=== PATIENT | female | born 1975 | race African-American/Black ===

== ENCOUNTER 2021-05-04 13:07 | Inpatient (IN) | payer OTHER ==
[2021-05-04] MEDS ORDERED: NICOTINE POLACRILEX 2 MG GUM BUC PRN (18:40)
[2021-05-04] MEDS ORDERED: MAGNESIUM HYDROX 2400MG/30ML ORAL SUSPENSION 30 ML CUP PO PRN (18:40)
[2021-05-04] MEDS ORDERED: MAG HYDROX/AL HYDROX/SIMETH 30 ML UNIT-DOSE CUP PO PRN (18:40)
[2021-05-04] MEDS ORDERED: ACETAMINOPHEN 325 MG TABLET (FP) PO PRN ×2 (18:40)
[2021-05-04] MEDS ORDERED: MENTHOL/PHENOL 1 EACH UD MM PRN (18:40)
[2021-05-04] MEDS ORDERED: ONDANSETRON *ODT* 4 MG TABLET SL PRN (18:40)
[2021-05-04] MEDS ORDERED: MAGNESIUM CITRATE 300 ML BOTTLE PO PRN (18:40)
[2021-05-04] MEDS ORDERED: METHOCARBAMOL 500 MG TABLET PO PRN (18:40)
[2021-05-04] MEDS ORDERED: IBUPROFEN 400 MG TABLET (FP) PO PRN (18:40)
[2021-05-04] MEDS ORDERED: BISMUTH SUBSALICYLATE 524 MG/30 ML PO PRN (18:40)
[2021-05-04 19:48] VITALS: BMI 21.2
[2021-05-04] MEDS ORDERED: hydrOXYzine PAMOATE 25 MG CAPSULE (FP) PO ONE (21:22)
[2021-05-04] MEDS: hydrOXYzine PAMOATE 25 MG CAPSULE (FP) PO SCH (21:24)
[2021-05-04] MEDS: MELATONIN 5 MG TABLETS PO SCH (21:24)
[2021-05-04] MEDS: THIAMINE HCL 100 MG TABLET (FP) PO SCH (21:24)
[2021-05-05] MEDS ORDERED: hydrOXYzine PAMOATE 25 MG CAPSULE (FP) PO ONE (05:34)
[2021-05-05] MEDS: hydrOXYzine PAMOATE 25 MG CAPSULE (FP) PO SCH ×5 (06:32→21:21)
[2021-05-05] MEDS ORDERED: methaDONE HCL 10 MG TABLET PO SCH (09:00)
[2021-05-05 10:04] LABS: HEMATOCRIT 30.9 % (32.4-45.2); HEMOGLOBIN 9.7 GM/dL (10.7-15.3); MCH 28.3 pg (25.7-33.7); MCHC 31.4 g/dl (32.0-36.0); MEAN CELL VOLUME 89.9 fl (80-96); MEAN PLT VOLUME 8.1 fl (7.5-11.1); PLATELET COUNT 257 10^3/uL (134-434); RBC 3.44 M/mm3 (3.60-5.2); RDW 14.5 % (11.6-15.6); WHITE BLOOD COUNT 4.2 K/mm3 (4.0-10.0)
[2021-05-05 10:16] LABS: CALCIUM 9.9 mg/dL (8.5-10.1)
[2021-05-05 10:17] LABS: ALBUMIN 3.1 g/dl (3.4-5.0); BLOOD UREA NITROGEN 15.7 mg/dL (7-18)
[2021-05-05 10:20] LABS: CREATININE 0.9 mg/dL (0.55-1.3)
[2021-05-05 10:22] LABS: BILIRUBIN,TOTAL 0.2 mg/dL (0.2-1); TOT PROT 6.9 g/dl (6.4-8.2)
[2021-05-05] MEDS ORDERED: methaDONE 40 MG, methaDONE 10 MG PO SCH (12:28)
[2021-05-05] MEDS ORDERED: methaDONE HCL 40 MG DISPERSABLE TABLET ONE (13:18)
[2021-05-05] MEDS ORDERED: methaDONE HCL 10 MG TABLET ONE (13:18)
[2021-05-05] MEDS: PRENATAL VITAMINS W/ FOLIC ACID TABLET (FP) PO SCH (13:19)
[2021-05-05] MEDS: FERROUS SO4 325 MG TABLET (FP) PO SCH (17:44)
[2021-05-05] MEDS: MELATONIN 5 MG TABLETS PO SCH (21:21)
[2021-05-05] MEDS: THIAMINE HCL 100 MG TABLET (FP) PO SCH (21:21)
[2021-05-06] MEDS ORDERED: methaDONE HCL 10 MG TABLET PO SCH (06:00)
[2021-05-06] MEDS: hydrOXYzine PAMOATE 25 MG CAPSULE (FP) PO SCH ×5 (07:08→21:51)
[2021-05-06] MEDS: methaDONE 40 MG, methaDONE 20 MG PO SCH (07:09)
[2021-05-06] MEDS ORDERED: methaDONE HCL 10 MG TABLET ONE (07:09)
[2021-05-06] MEDS ORDERED: methaDONE HCL 40 MG DISPERSABLE TABLET ONE (07:09)
[2021-05-06] MEDS: FERROUS SO4 325 MG TABLET (FP) PO SCH ×3 (07:10→18:30)
[2021-05-06] MEDS: PRENATAL VITAMINS W/ FOLIC ACID TABLET (FP) PO SCH (10:45)
[2021-05-06] MEDS: THIAMINE HCL 100 MG TABLET (FP) PO SCH (21:51)
[2021-05-06] MEDS: MELATONIN 5 MG TABLETS PO SCH (21:51)
[2021-05-07] MEDS ORDERED: methaDONE HCL 10 MG TABLET ONE (05:02)
[2021-05-07] MEDS ORDERED: methaDONE HCL 40 MG DISPERSABLE TABLET ONE (05:02)
[2021-05-07] MEDS: FERROUS SO4 325 MG TABLET (FP) PO SCH ×3 (07:13→18:18)
[2021-05-07] MEDS: hydrOXYzine PAMOATE 25 MG CAPSULE (FP) PO SCH ×5 (07:13→21:50)
[2021-05-07] MEDS: methaDONE 40 MG, methaDONE 20 MG PO SCH (07:13)
[2021-05-07] MEDS: PRENATAL VITAMINS W/ FOLIC ACID TABLET (FP) PO SCH (10:38)
[2021-05-07] MEDS: THIAMINE HCL 100 MG TABLET (FP) PO SCH (21:50)
[2021-05-07] MEDS: MELATONIN 5 MG TABLETS PO SCH (21:50)
[2021-05-08] MEDS ORDERED: methaDONE HCL 40 MG DISPERSABLE TABLET ONE (03:08)
[2021-05-08] MEDS ORDERED: methaDONE HCL 10 MG TABLET ONE (03:08)
[2021-05-08] MEDS: methaDONE 40 MG, methaDONE 20 MG PO SCH (06:44)
[2021-05-08] MEDS: hydrOXYzine PAMOATE 25 MG CAPSULE (FP) PO SCH (06:45)
[2021-05-08 07:34] VITALS: BP 130/77; PULSE 65; TEMP 95.3
[2021-05-08] MEDS: FERROUS SO4 325 MG TABLET (FP) PO SCH (07:51)
== END 2021-05-08 09:20 | disposition left against medical advice (07) | DRG 770 ==
LOC: YASAS 13:07 → Y5N 05-05 11:44
PROVIDERS: ADMIT Allergy & Immunology; ATTEND Allergy & Immunology
PROC: HZ42ZZZ Group Counseling for Substance Abuse Treatment, Cognitive-Behavioral (ICD-10-PCS; principal; 2021-05-05)
DX: F10.20 Alcohol dependence, uncomplicated (principal); F11.20 Opioid dependence, uncomplicated; F14.20 Cocaine dependence, uncomplicated; F16.20 Hallucinogen dependence, uncomplicated; F32.9 Major depressive disorder, single episode, unspecified; F41.9 Anxiety disorder, unspecified; D50.9 Iron deficiency anemia, unspecified; I10 Essential (primary) hypertension; J45.909 Unspecified asthma, uncomplicated; M19.90 Unspecified osteoarthritis, unspecified site
CPT/HCPCS: 36415; 80053; 85027; 86780; C9803; U0003; U0005